=== PATIENT | male | born 1960 | race Caucasian/White ===

== ENCOUNTER 2019-08-20 10:55 | Inpatient (IN) ==
[2019-08-20] MEDS ORDERED: Naloxone 0.4 MG/ML INJ IVP PRN (14:05)
[2019-08-20] MEDS ORDERED: Ondansetron 4 MG/2 ML VIAL IVP PRN (14:05)
[2019-08-20 14:51] LABS: Basophils % 0.1 %
[2019-08-20 14:53] LABS: Hematocrit 36.6 % (37.5-50.1); Hemoglobin 12.2 g/dL (12.9-16.9); Immature Granulocytes % 1.1 % (0-4); Lymphocytes # 0.8 K/mcL (0.6-4.6); Mean Corpuscular HGB Conc 33.3 g/dL (31.6-35.5); Mean Corpuscular Hemoglobin 33.1 pg (28.0-33.3); Mean Corpuscular Volume 99.2 fL (83.0-100.0); Mean Platelet Volume 11.4 fL (9.4-12.4); Monocytes # 1.2 K/mcL (0.0-1.3); Monocytes % 4.8 %; Neutrophils # 23.3 K/mcL (1.6-8.9); Platelet Count 235 K/mcL (140-400); Red Blood Count 3.69 M/mcL (4.19-5.50); Red Cell Distribution Width 15.7 % (11.5-14.5); White Blood Count 25.6 K/mcL (4.3-11.1)
[2019-08-20 15:06] LABS: BUN/Creatinine Ratio 30 (6-26); Blood Urea Nitrogen 25 mg/dL (6-20); Calcium 8.8 mg/dL (8.6-10.3); Carbon Dioxide 30 mEq/L (23-29); Chloride 105 mEq/L (98-107); Glucose 136 mg/dL (70-105); Osmolality,Calculated 302 (280-300); Potassium 3.9 mEq/L (3.5-5.1); Sodium 143 mEq/L (136-145); eGFR For African Americans > 60 (> 60); eGFR For Non-African Americans > 60 (> 60)
[2019-08-20 16:35] LABS: Platelet Estimate Normal (Normal)
[2019-08-20 16:36] LABS: ABG Base Excess 7 mEq/L (-2 to 3); ABG HCO3 32 mEq/L (21-27); ABG Oxygen Saturation 98 % (95-98); ABG PCO2 44 mmHg (35-45); ABG PH 7.47 pH Units (7.32-7.45); ABG PO2 99 mmHg (85-104); ABG TCO2 33 mEq/L (20-26)
[2019-08-20] MEDS: Ipratropium/Albuterol Neb 3 ML IH SCH ×3 (16:53→23:44)
[2019-08-20] MEDS: MethylPREDNISolone 40 MG/ML VIAL IVP SCH (17:11)
[2019-08-20] MEDS: *HR* Heparin 5,000 UNIT/ML VIAL SQ SCH (17:11)
[2019-08-20] MEDS: *HR* OxyCODONE/APAP 5/325 TABLET PO SCH ×2 (17:42→20:48)
[2019-08-20] MEDS ORDERED: *HR* LORazepam 2 MG/ML VIAL IVP PRN (18:26)
[2019-08-20] MEDS: Furosemide 40 MG/4 ML VIAL IVP SCH (20:48)
[2019-08-21 02:13] LABS: Adenovirus Not Detected (Not Detect); Coronavirus 229E Not Detected (Not Detect); Coronavirus HKU1 Not Detected (Not Detect); Coronavirus NL63 Not Detected (Not Detect); Coronavirus OC43 Not Detected (Not Detect); Human Metapneumovirus Not Detected (Not Detect); Human Rhinovirus/Enterovirus Not Detected (Not Detect); Influenza A Subtype 2009 H1 Not Detected (Not Detect); Influenza B Not Detected (Not Detect)
[2019-08-21 02:14] LABS: Bordetella Pertussis Not Detected (Not Detect); Chlamydophila pneumoniae Not Detected (Not Detect); Mycoplasma pneumoniae Not Detected (Not Detect); Parainfluenza Virus 1 Not Detected (Not Detect); Parainfluenza Virus 2 Not Detected (Not Detect); Parainfluenza Virus 3 Not Detected (Not Detect); Parainfluenza Virus 4 Not Detected (Not Detect); Respiratory Syncytial Virus Not Detected (Not Detect)
[2019-08-21] MEDS: Ipratropium/Albuterol Neb 3 ML IH SCH ×6 (03:59→23:20)
[2019-08-21] MEDS: *HR* Heparin 5,000 UNIT/ML VIAL SQ SCH ×2 (05:11→17:59)
[2019-08-21] MEDS: MethylPREDNISolone 40 MG/ML VIAL IVP SCH ×2 (05:11→17:59)
[2019-08-21] MEDS ORDERED: methocarbamoL 750 MG TABLET PO PRN (07:11)
[2019-08-21] MEDS: Furosemide 40 MG/4 ML VIAL IVP SCH ×2 (07:53→20:51)
[2019-08-21] MEDS: Azithromycin 500 MG in 0.9 % Sodium Chloride 250 ML IVPB SCH (07:54)
[2019-08-21] MEDS: cefTRIAXone 1,000 MG in Water for inj. (sterile) 10 ML IVP SCH (07:54)
[2019-08-21] MEDS: *HR* OxyCODONE/APAP 5/325 TABLET PO SCH ×4 (07:54→20:51)
[2019-08-21] MEDS: Gabapentin 400 MG CAPSULE PO SCH ×4 (08:03→20:50)
[2019-08-21] MEDS: Folic Acid 1 MG TABLET PO SCH (08:03)
[2019-08-21] MEDS: Aspirin Enteric Coated 81 MG Tablet PO SCH (08:03)
[2019-08-21] MEDS: Metoprolol XL (24 HR) Succ 50 MG TAB.ER.24H PO SCH (08:09)
[2019-08-21 08:12] LABS: ABG Base Excess 10 mEq/L (-2 to 3); ABG HCO3 36 mEq/L (21-27); ABG Oxygen Saturation 98 % (95-98); ABG PCO2 50 mmHg (35-45); ABG PH 7.46 pH Units (7.32-7.45); ABG PO2 107 mmHg (85-104); ABG TCO2 37 mEq/L (20-26)
[2019-08-21] MEDS ORDERED: lisinopriL 10 MG TABLET PO SCH (09:00)
[2019-08-21 09:46] LABS: Hematocrit 36.9 % (37.5-50.1); Hemoglobin 12.3 g/dL (12.9-16.9); Immature Granulocytes % 0.7 % (0-4); Lymphocytes # 0.7 K/mcL (0.6-4.6); Lymphocytes % 3.4 %; Mean Corpuscular HGB Conc 33.3 g/dL (31.6-35.5); Mean Corpuscular Hemoglobin 33.2 pg (28.0-33.3); Mean Corpuscular Volume 99.5 fL (83.0-100.0); Mean Platelet Volume 11.5 fL (9.4-12.4); Monocytes # 0.8 K/mcL (0.0-1.3); Monocytes % 3.9 %; Neutrophils # 18.5 K/mcL (1.6-8.9); Platelet Count 239 K/mcL (140-400); Red Blood Count 3.71 M/mcL (4.19-5.50); Red Cell Distribution Width 15.5 % (11.5-14.5); White Blood Count 20.2 K/mcL (4.3-11.1)
[2019-08-21 10:02] LABS: BUN/Creatinine Ratio 41 (6-26); Blood Urea Nitrogen 27 mg/dL (6-20); Calcium 8.9 mg/dL (8.6-10.3); Carbon Dioxide 33 mEq/L (23-29); Chloride 100 mEq/L (98-107); Glucose 140 mg/dL (70-105); Osmolality,Calculated 297 (280-300); Potassium 3.6 mEq/L (3.5-5.1); Sodium 140 mEq/L (136-145); eGFR For African Americans > 60 (> 60); eGFR For Non-African Americans > 60 (> 60)
[2019-08-21] MEDS: Budesonide/Formoterol 160/4.5 1 PUFF INH IH SCH ×2 (11:11→20:23)
[2019-08-22] MEDS: Ipratropium/Albuterol Neb 3 ML IH SCH ×5 (03:22→23:49)
[2019-08-22] MEDS: *HR* Heparin 5,000 UNIT/ML VIAL SQ SCH ×2 (04:50→18:14)
[2019-08-22] MEDS: MethylPREDNISolone 40 MG/ML VIAL IVP SCH ×2 (04:51→18:13)
[2019-08-22 05:08] LABS: Basophils % 0.2 %; Eosinophils % 0.2 %; Hematocrit 37.1 % (37.5-50.1); Hemoglobin 12.2 g/dL (12.9-16.9); Immature Granulocytes % 1.2 % (0-4); Lymphocytes # 1.5 K/mcL (0.6-4.6); Lymphocytes % 12.7 %; Mean Corpuscular HGB Conc 32.9 g/dL (31.6-35.5); Mean Corpuscular Hemoglobin 32.7 pg (28.0-33.3); Mean Corpuscular Volume 99.5 fL (83.0-100.0); Monocytes # 0.5 K/mcL (0.0-1.3); Monocytes % 4.5 %; Neutrophils # 9.9 K/mcL (1.6-8.9); Platelet Count 238 K/mcL (140-400); Red Blood Count 3.73 M/mcL (4.19-5.50); Red Cell Distribution Width 15.2 % (11.5-14.5); Segmented Neutrophils % 81.2 %; White Blood Count 12.1 K/mcL (4.3-11.1)
[2019-08-22 05:24] LABS: BUN/Creatinine Ratio 45 (6-26); Blood Urea Nitrogen 29 mg/dL (6-20); Calcium 8.8 mg/dL (8.6-10.3); Carbon Dioxide 34 mEq/L (23-29); Chloride 99 mEq/L (98-107); Glucose 121 mg/dL (70-105); Magnesium 2.1 mg/dL (1.6-2.6); Osmolality,Calculated 297 (280-300); Potassium 3.5 mEq/L (3.5-5.1); Sodium 140 mEq/L (136-145); eGFR For African Americans > 60 (> 60); eGFR For Non-African Americans > 60 (> 60)
[2019-08-22] MEDS: Budesonide/Formoterol 160/4.5 1 PUFF INH IH SCH ×2 (06:48→19:49)
[2019-08-22] MEDS ORDERED: Water for inj. (sterile) 20 ML VIAL IV ONE (10:20)
[2019-08-22] MEDS ORDERED: CefTRIAXone 1,000 MG VIAL ONE (10:23)
[2019-08-22] MEDS ORDERED: *HR* OxyCODONE/APAP 5/325 TABLET ONE ×2 (10:23)
[2019-08-22] MEDS ORDERED: Ipratropium/Albuterol Neb 3 ML ONE ×2 (10:23→15:24)
[2019-08-22] MEDS ORDERED: Folic Acid 1 MG TABLET ONE (10:23)
[2019-08-22] MEDS ORDERED: Azithromycin 500 MG VIAL ONE (10:23)
[2019-08-22] MEDS ORDERED: Aspirin Enteric Coated 81 MG Tablet PO ONE (10:23)
[2019-08-22] MEDS ORDERED: Gabapentin 400 MG CAPSULE ONE ×2 (10:23)
[2019-08-22] MEDS ORDERED: Metoprolol XL (24 HR) Succ 50 MG TAB.ER.24H PO ONE (10:23)
[2019-08-22] MEDS ORDERED: Furosemide 40 MG/4 ML VIAL ONE (10:23)
[2019-08-22] MEDS: Aspirin Enteric Coated 81 MG Tablet PO SCH (17:15)
[2019-08-22] MEDS: Azithromycin 500 MG in 0.9 % Sodium Chloride 250 ML IVPB SCH (17:15)
[2019-08-22] MEDS: Gabapentin 400 MG CAPSULE PO SCH ×4 (17:16→21:30)
[2019-08-22] MEDS: Folic Acid 1 MG TABLET PO SCH (17:16)
[2019-08-22] MEDS: Furosemide 40 MG/4 ML VIAL IVP SCH ×2 (17:16→21:30)
[2019-08-22] MEDS: cefTRIAXone 1,000 MG in Water for inj. (sterile) 10 ML IVP SCH (17:17)
[2019-08-22] MEDS: Metoprolol XL (24 HR) Succ 50 MG TAB.ER.24H PO SCH (17:17)
[2019-08-22] MEDS: *HR* OxyCODONE/APAP 5/325 TABLET PO SCH ×4 (17:17→21:30)
[2019-08-23] MEDS: Ipratropium/Albuterol Neb 3 ML IH SCH ×3 (03:42→11:33)
[2019-08-23] MEDS: MethylPREDNISolone 40 MG/ML VIAL IVP SCH (05:19)
[2019-08-23] MEDS: *HR* Heparin 5,000 UNIT/ML VIAL SQ SCH (05:19)
[2019-08-23 07:20] LABS: Basophils # 0.1 K/mcL (0.0-0.2); Basophils % 0.4 %; Eosinophils # 0.1 K/mcL (0.0-0.6); Eosinophils % 0.4 %; Hematocrit 40.8 % (37.5-50.1); Hemoglobin 13.5 g/dL (12.9-16.9); Immature Granulocytes % 3.1 % (0-4); Lymphocytes # 1.9 K/mcL (0.6-4.6); Mean Corpuscular HGB Conc 33.1 g/dL (31.6-35.5); Mean Corpuscular Hemoglobin 32.7 pg (28.0-33.3); Mean Corpuscular Volume 98.8 fL (83.0-100.0); Monocytes # 0.7 K/mcL (0.0-1.3); Monocytes % 5.2 %; Neutrophils # 10.4 K/mcL (1.6-8.9); Platelet Count 258 K/mcL (140-400); Red Blood Count 4.13 M/mcL (4.19-5.50); Red Cell Distribution Width 15.3 % (11.5-14.5); Segmented Neutrophils % 76.9 %; White Blood Count 13.5 K/mcL (4.3-11.1)
[2019-08-23 07:37] LABS: BUN/Creatinine Ratio 50 (6-26); Blood Urea Nitrogen 36 mg/dL (6-20); Calcium 9.1 mg/dL (8.6-10.3); Carbon Dioxide 33 mEq/L (23-29); Chloride 95 mEq/L (98-107); Glucose 126 mg/dL (70-105); Magnesium 2.3 mg/dL (1.6-2.6); Osmolality,Calculated 298 (280-300); Potassium 3.5 mEq/L (3.5-5.1); Sodium 139 mEq/L (136-145); eGFR For African Americans > 60 (> 60); eGFR For Non-African Americans > 60 (> 60)
[2019-08-23] MEDS: Budesonide/Formoterol 160/4.5 1 PUFF INH IH SCH (07:40)
[2019-08-23 08:07] VITALS: BP 141/82
[2019-08-23] MEDS: Azithromycin 500 MG in 0.9 % Sodium Chloride 250 ML IVPB SCH (08:54)
[2019-08-23] MEDS: Furosemide 40 MG/4 ML VIAL IVP SCH (08:56)
[2019-08-23] MEDS: Aspirin Enteric Coated 81 MG Tablet PO SCH (08:56)
[2019-08-23] MEDS: cefTRIAXone 1,000 MG in Water for inj. (sterile) 10 ML IVP SCH (08:56)
[2019-08-23] MEDS: Metoprolol XL (24 HR) Succ 50 MG TAB.ER.24H PO SCH (08:57)
[2019-08-23] MEDS: *HR* OxyCODONE/APAP 5/325 TABLET PO SCH (08:57)
[2019-08-23] MEDS: Gabapentin 400 MG CAPSULE PO SCH (08:57)
[2019-08-23] MEDS: Folic Acid 1 MG TABLET PO SCH (08:57)
== END 2019-08-23 12:00 | disposition home or self-care (01) | DRG 291 ==
LOC: 2NNU 13:19 → SUATTDRO 14:05 → 2ANU 08-22 17:22
PROVIDERS: ADMIT Family Medicine; ATTEND Internal Medicine

== ENCOUNTER 2019-09-12 19:08 | Observation (INO) ==
[2019-09-12] MEDS ORDERED: Naloxone 0.4 MG/ML INJ IVP PRN (21:59)
[2019-09-12 23:38] LABS: Basophils % 0.2 %; Eosinophils # 0.2 K/mcL (0.0-0.6); Eosinophils % 1.7 %; Hematocrit 33.5 % (37.5-50.1); Hemoglobin 11.2 g/dL (12.9-16.9); Immature Granulocytes % 0.2 % (0-4); Lymphocytes # 1.9 K/mcL (0.6-4.6); Lymphocytes % 20.3 %; Mean Corpuscular HGB Conc 33.4 g/dL (31.6-35.5); Mean Corpuscular Hemoglobin 34.4 pg (28.0-33.3); Mean Corpuscular Volume 102.8 fL (83.0-100.0); Mean Platelet Volume 11.3 fL (9.4-12.4); Monocytes # 0.6 K/mcL (0.0-1.3); Monocytes % 6.1 %; Neutrophils # 6.9 K/mcL (1.6-8.9); Platelet Count 180 K/mcL (140-400); Red Blood Count 3.26 M/mcL (4.19-5.50); Red Cell Distribution Width 15.9 % (11.5-14.5); Segmented Neutrophils % 71.5 %; White Blood Count 9.6 K/mcL (4.3-11.1)
[2019-09-12 23:44] LABS: Estimated Average Glucose 134 mg/dl
[2019-09-13 00:31] LABS: Alanine Aminotransferase 16 Units/L (7-52); Albumin 3.5 g/dL (3.5-5.7); Albumin/Globulin Ratio 2.1 (1.1-2.2); Alkaline Phosphatase 69 Units/L (34-104); Aspartate Amino Transferase 14 Units/L (13-39); BUN/Creatinine Ratio 22 (6-26); Bilirubin,Total 0.2 mg/dL (0.3-1.0); Blood Urea Nitrogen 26 mg/dL (6-20); Calcium 8.2 mg/dL (8.6-10.3); Carbon Dioxide 21 mEq/L (23-29); Chloride 113 mEq/L (98-107); Globulin 1.7 g/dL (2.4-3.5); Glucose 85 mg/dL (70-105); Magnesium 1.5 mg/dL (1.6-2.6); Osmolality,Calculated 298 (280-300); Potassium 4.1 mEq/L (3.5-5.1); Sodium 142 mEq/L (136-145); Total Protein 5.2 g/dL (6.4-8.9); eGFR For African Americans > 60 (> 60); eGFR For Non-African Americans > 60 (> 60)
[2019-09-13] MEDS: Lactulose Oral Soln 20 GM/30 ML UDC PO SCH ×3 (00:40→21:43)
[2019-09-13] MEDS: Furosemide 40 MG/4 ML VIAL IVP SCH ×3 (00:40→21:43)
[2019-09-13 00:58] LABS: Thyroid Stimulating Hormone 1.119 mcIU/mL (0.340-5.600)
[2019-09-13 01:12] LABS: Basophils % 0.1 %; Eosinophils # 0.1 K/mcL (0.0-0.6); Eosinophils % 1.4 %; Hematocrit 34.2 % (37.5-50.1); Hemoglobin 11.2 g/dL (12.9-16.9); Immature Granulocytes % 0.4 % (0-4); Lymphocytes # 1.9 K/mcL (0.6-4.6); Mean Corpuscular HGB Conc 32.7 g/dL (31.6-35.5); Mean Corpuscular Hemoglobin 33.7 pg (28.0-33.3); Mean Platelet Volume 11.1 fL (9.4-12.4); Monocytes # 0.6 K/mcL (0.0-1.3); Monocytes % 6.9 %; Neutrophils # 6.4 K/mcL (1.6-8.9); Platelet Count 183 K/mcL (140-400); Red Blood Count 3.32 M/mcL (4.19-5.50); Red Cell Distribution Width 15.9 % (11.5-14.5); Segmented Neutrophils % 70.2 %; White Blood Count 9.1 K/mcL (4.3-11.1)
[2019-09-13 01:33] LABS: Amphetamine Screen,Urine Negative ng/mL (Cutoff=1000); Barbiturate Screen,Urine Negative ng/mL (Cutoff=200); Benzodiazepines Screen,Urine Negative ng/mL (Cutoff=200); Cannabinoid Screen,Urine Negative ng/mL (Cutoff = 50); Cocaine Screen,Urine Negative ng/mL (Cutoff= 300); Opiate Screen,Urine Positive ng/mL (Cutoff=300); Phencyclidine Screen,Urine Negative ng/mL (Cutoff=25)
[2019-09-13] MEDS ORDERED: NON-FORMULARY MEDICATION 1 EACH EACH (Metoprolol Succinate [Toprol Xl] 100 MG) PO SCH (12:30)
[2019-09-13 14:24] LABS: BUN/Creatinine Ratio 27 (6-26); Blood Urea Nitrogen 21 mg/dL (6-20); Calcium 8.7 mg/dL (8.6-10.3); Carbon Dioxide 26 mEq/L (23-29); Chloride 104 mEq/L (98-107); Glucose 88 mg/dL (70-105); Osmolality,Calculated 290 (280-300); Potassium 3.4 mEq/L (3.5-5.1); Sodium 139 mEq/L (136-145); eGFR For African Americans > 60 (> 60); eGFR For Non-African Americans > 60 (> 60)
[2019-09-13] MEDS: Venlafaxine XR (24 HR) 37.5 MG CAP.ER.24H PO SCH (15:05)
[2019-09-13] MEDS: Budesonide/Formoterol 160/4.5 1 PUFF INH IH SCH ×2 (15:46→19:59)
[2019-09-13] MEDS: *HR* OxyCODONE/APAP 5/325 TABLET PO PRN ×2 (15:50→22:28)
[2019-09-13] MEDS: *HR* Heparin 5,000 UNIT/ML VIAL SQ SCH (16:38)
[2019-09-13] MEDS: Ipratropium/Albuterol Neb 3 ML IH PRN (20:05)
[2019-09-14 03:20] LABS: BUN/Creatinine Ratio 22 (6-26); Blood Urea Nitrogen 15 mg/dL (6-20); Carbon Dioxide 29 mEq/L (23-29); Chloride 99 mEq/L (98-107); Glucose 78 mg/dL (70-105); Osmolality,Calculated 290 (280-300); Sodium 140 mEq/L (136-145); eGFR For African Americans > 60 (> 60); eGFR For Non-African Americans > 60 (> 60)
[2019-09-14] MEDS: *HR* Heparin 5,000 UNIT/ML VIAL SQ SCH (06:15)
[2019-09-14] MEDS: Budesonide/Formoterol 160/4.5 1 PUFF INH IH SCH (07:41)
[2019-09-14] MEDS: Ipratropium/Albuterol Neb 3 ML IH PRN (07:41)
[2019-09-14] MEDS: Venlafaxine XR (24 HR) 37.5 MG CAP.ER.24H PO SCH (08:17)
[2019-09-14] MEDS: Furosemide 40 MG/4 ML VIAL IVP SCH (08:18)
[2019-09-14] MEDS: Lactulose Oral Soln 20 GM/30 ML UDC PO SCH (08:18)
[2019-09-14] MEDS ORDERED: lisinopriL 10 MG TABLET PO SCH (09:00)
[2019-09-14] MEDS ORDERED: Metoprolol XL (24 HR) Succ 50 MG TAB.ER.24H PO SCH (09:00)
[2019-09-14] MEDS ORDERED: Aspirin Enteric Coated 81 MG Tablet PO SCH (09:00)
[2019-09-14 11:56] VITALS: BP 115/75
[2019-09-14] MEDS: *HR* OxyCODONE/APAP 5/325 TABLET PO PRN (12:02)
== END 2019-09-14 12:52 | disposition home or self-care (01) ==
LOC: 2ANU → SUATTDRO 20:42
PROVIDERS: ADMIT Internal Medicine; ATTEND Internal Medicine